=== PATIENT | male | born 1940 | race Caucasian/White ===

== ENCOUNTER 2019-09-17 12:46 | Emergency (ER) | payer OTHER ==
[~2019-09-17] VITALS: Ht 177.8 cm; Wt 99.8 kg
[2019-09-17] MEDS ORDERED: VITAMIN B-121000 MCG PO (13:01)
[2019-09-17] MEDS ORDERED: DULOXETINE HCL30 MG PO (13:01)
[2019-09-17] MEDS ORDERED: FUROSEMIDE 40 M40 MG PO (13:02)
[2019-09-17] MEDS ORDERED: GALANTAMINE HBR24 MG PO (13:02)
[2019-09-17] MEDS ORDERED: GLIPIZIDE5 MG PO (13:03)
[2019-09-17] MEDS ORDERED: KLOR-CON M2020 MEQ PO (13:04)
[2019-09-17] MEDS ORDERED: METFORMIN HCL500 M1 PO (13:04)
[2019-09-17] MEDS ORDERED: IMIPRAMINE HCL25 MG PO (13:04)
[2019-09-17] MEDS ORDERED: PRAVACHOL40 MG PO (13:04)
[2019-09-17] MEDS ORDERED: MEMANTINE HCL10 MG PO (13:04)
[2019-09-17] MEDS ORDERED: LOPRESSOR25 PO (13:05)
[2019-09-17 14:02] LABS: ABSOLUTE NEUTROPHILS 6.7 thou/uL (1.4-8.2); BASOPHILS 0.5 % (0.0-2.0); HEMATOCRIT 40.8 % (42.0-52.0); HEMOGLOBIN 13.7 gm/dL (14.0-18.0); LYMPHOCYTES 19.2 % (24.0-44.0); MCH 31.1 pg (26.0-34.0); MCHC 33.5 g/dL (28.0-37.0); MCV 92.8 fL (80.0-100.0); MONOCYTES 5.7 % (1.0-8.0); PLATELET COUNT 231 thou/uL (150-400); POLYS 71.6 % (36.0-66.0); RDW 13.7 % (10.5-14.5); WBC 9.4 thou/uL (4.0-11.0)
[2019-09-17 14:05] LABS: CALCIUM 9.6 mg/dL (8.5-10.1); CREATININE 1.3 mg/dL (0.7-1.3); POTASSIUM 4.1 mmol/L (3.5-5.1)
[2019-09-17 14:15] LABS: TROPONIN-I 0.06 ng/mL (<0.06)
[2019-09-17 14:37] VITALS: BP 139/81
--- NOTE | 2019-09-18 13:50 | EKG ---
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: MARSHALL : 1940 Requested By: Magali Barnes Order Number: [id number] MD: Neto Canchola Measurements Intervals [place] Rate: 63 P: 26 ME: 82 QRS: -76 QRSD: 153 T: 36 QT: 459 QTc: 470 Interpretive Statements Sinus rhythm Multiform ventricular premature complexes Short ME interval RBBB and LAFB Compared to ECG 11/17/2012 07:15:09 Ventricular premature complex(es) now present Short ME interval now present Left anterior fascicular block now present Right bundle-branch block now present Electronically Signed On 09-18-2019 13:49:59 [employer] by Neto Canchola [email or web address] <ELECTRONICALLY SIGNED> By: Neto Canchola MD 09/18/19 1349 [id number] [id number] Neto [email or web address] MD /EPI
== END 2019-09-17 16:35 | disposition home or self-care (01) ==
LOC: ER 12:46
PROVIDERS: Emergency Medicine
DX: R07.9 Chest pain, unspecified (principal); E11.9 Type 2 diabetes mellitus without complications; J44.9 Chronic obstructive pulmonary disease, unspecified; Z91.040 Latex allergy status